=== PATIENT | female | born 1975 | race Hispanic/Latino ===

== ENCOUNTER 2022-01-25 15:28 | Emergency (ER) | payer BC ==
--- OUTSIDE RECORDS SUMMARY | 2022-01-25 15:31 | XMS REPORT | Continuity of Care Document ---
:1975 Author Organization [facility] t Address [address] [place] [address] Care Team Providers Name Role Phone FRANDY WHITING Primary Care Physician Unavailable Frandy Whiting Attending Clinician Unavailable JAVIER JUNIOR Attending Clinician Unavailable Leslie Leon Attending Clinician Doctor Unassigned, [place] Attending Clinician Unavailable Rob_Ashwini Attending Clinician Unavailable Rob_Ashwini Admitting Clinician Unavailable Payers Payer Name Policy Type Policy Number Effective Date Expiration Date S michelle TAFOYA BCBS BLUE [id number] 2021 [place]VANTAGE H[place] 00:00:00 [place] [id number] 2008 [place] (PP[place] 00:00:00 Problems Condition Condition Condition Status Onset Resolution Last Treating Co mments Source Name Details Category Date Date Treatment Clinician Date No known No known Disease Unive rs active active ity of problems problems [facility] Allergies, Adverse Reactions, Alerts Allergy Allergy Status Severity Reaction(s) Onset Inactive Treating Comm ents Source Name Type Date Date Clinician DOXYLAMI DRUG Active Other-Cmnt Univ ers N-PSE-DM 7-14 ity of -ACETAMI 00:00: [place] NOPHEN 00 Medical Branch SULFA Drug Active Hives Univers (SULFONA Class 7-14 ity of MIDE 00:00: [place] ANTIBIOT 00 Medical ICS) Branch Doxylami Propensi Active Other - See 2022-0 U nivers n-Pse-Dm ty to comments 12-21 ity of -Acetami adverse 00:00: [place] nophen reaction 00 Medical s Branch Sulfa Propensi Active Hives Univers (Sulfona ty to 12-21 ity of mide adverse 00:00: [place] Antibiot reaction 00 Medica l ics) s Branch NyQuil Adverse Active heart racing Com mon Reaction [facility] Sulfa Adverse Active shortness of Com mon Reaction breath [facility] Social History Social Habit Start Date Stop Date Quantity Comments Source Exposure to 2021-12-11 2021-12-21 Not sure [facility] SARS-CoV-2 00:00:00 13:24:00 [facility] (event) [place] Tobacco use and 2021-12-21 2021-12-21 Smokeless tobacco Un iversity of exposure 00:00:00 00:00:00 non-user [facility] Alcohol intake 2021-12-21 2021-12-21 Current drinker Unive rsity of 00:00:00 00:00:00 of alcohol [facility] (finding) [place] Sex Assigned At [birth year] Universit y of 00:00:00 00:00:00 [facility] Smoking Status Start Date Stop Date Source Never smoked tobacco [facility] Medications Ordered Filled Start Stop Current Ordering Indication Dosage Frequency Signature Comments Components Source Medication Medication Date Date Medication? Clinician (SIG) Name Name lansoprazol Yes 15mg Take 15 mg Univers e 7-14 by mouth ity of (PREVACID) 13:37: in the [place] 15 mg 34 morning Medical capsule and 15 mg Branch in the evening. hydrOXYzine 0 Yes 25mg Take 25 mg Univers 25 mg 7-14 by mouth ity of tablet 13:37: every 6 [place] [id number] (six) Medical hours. Branch lansoprazol 0 Yes 15mg Take 15 mg Univers e 7-14 by mouth ity of (PREVACID) 13:37: in the [place] 15 mg 34 morning Medical capsule and 15 mg Branch in the evening. hydrOXYzine 2021-0 Yes 25mg Take 25 mg Univers 25 mg 7-14 by mouth ity of tablet 13:37: every 6 [place] [address] (six) Medical hours. Branch Procedures Procedure Date / Time Performing Clinician Source Performed INSURANCE CORRESPONDENCE 2021-12-26 05:01:00 Doctor Unassigned, [facility] [place] [facility] Encounters Start End Encounter Admission Attending Care Care Encounter Source Date/Time Date/Time Type Type Clinicians Facility Department ID 2021-12-20 Outpatient Tricia, [facility] STL[facility] [id number] Common 08:23:00 Frandy [id number] [facility] 2021-11-16 Outpatient [place], STLMLC STLMLC [id number] Common 09:05:01 Frandy [id number] [facility] 2021-10-27 Outpatient [place], STLMLC STLMLC [id number] Common 10:40:05 Frandy [facility] 2021-10-04 Outpatient [place], STLMLC STLMLC [id number] Common 10:43:00 Frandy [facility] 2021-07-05 Outpatient [place], STLMLC STLMLC [id number] Common 13:51:12 Frandy [id number] [facility] 2021-07-05 Outpatient [place], STLMLC STLMLC [id number] Common 13:10:23 Frandy [id number] [facility] 2021-07-05 Outpatient [place], STLMLC STLMLC [id number] Common 11:36:03 Frandy [id number] [facility] 2021-07-05 Outpatient STLMLC STLMLC [id number] Common 11:26:02 [id number] [facility] 2022-01-16 2022-01-16 Outpatient R SANDI, [facility] [id number] Univers 10:00:00 10:00:00 JAVIER [id number] ity o f [facility] 2022-01-16 2022-01-16 Outpatient [facility] [id number] Univers 10:00:00 10:00:00 JAVIER hernandezy o f [facility] 2021-12-31 2021-12-31 Telephone GILBERT Carrero [id number] Univers 00:00:00 00:00:00 Leslie MORRIS [id number] i ty of [facility] [id number] Christopher as [id number] [facility] 008 Branch 2021-12-26 2021-12-26 Orders Doctor GILBERT [id number] Univers 00:00:00 00:00:00 Only Unassigned, ALEXANDRA [id number] ity of [facility] [id number] Christopher as [id number] [facility] 009 Branch 2021-12-22 2021-12-22 ambulatory STLMLC STLMLC [id number] Common 00:00:00 00:00:00 [facility] 2021-12-19 2021-12-19 ambulatory STLMLC STLMLC [id number] Common 00:00:00 00:00:00 [facility] 2021-11-20 2021-11-20 ambulatory STLMLC STLMLC [id number] Common 00:00:00 00:00:00 [facility] 2021-11-15 2021-11-15 ambulatory STLMLC STLMLC [id number] Common 00:00:00 00:00:00 [facility] 2021-11-14 2021-11-14 ambulatory STLMLC STLMLC [id number] Common 00:00:00 00:00:00 [facility] 2021-11-01 2021-11-01 ambulatory STLMLC STLMLC [id number] Common 00:00:00 00:00:00 [facility] 2021-10-31 2021-10-31 ambulatory STLMLC STLMLC [id number] Common 00:00:00 00:00:00 [facility] 2021-10-20 2021-10-20 ambulatory STLMLC STLMLC [id number] Common 00:00:00 00:00:00 [facility] 2021-10-05 2021-10-05 ambulatory STLMLC STLMLC [id number] Common 00:00:00 00:00:00 [facility] 2021-04-14 2021-04-14 ambulatory STLMLC STLMLC [id number] Common 00:00:00 00:00:00 [facility] 2021-02-02 2021-02-02 Outpatient STLMLC STLMLC [id number] Common 00:00:00 00:00:00 [facility] 2021-02-02 2021-02-02 Outpatient STLMLC STLMLC [id number] Common 00:00:00 00:00:00 [facility] 2021-01-09 2021-01-09 Outpatient STLMLC STLMLC [id number] Common 00:00:00 00:00:00 [facility] 2020-11-09 2020-11-09 Outpatient STLMLC STLMLC [id number] Common 00:00:00 00:00:00 [facility] 2020-10-19 2020-10-19 Outpatient STLMLC STLMLC [id number] Common 00:00:00 00:00:00 [facility] 2020-10-18 2020-10-18 Outpatient STLMLC STL[facility]C [id number] Common 00:00:00 00:00:00 [facility] 2020-10-05 2020-10-05 Outpatient STLMLC STL[facility]C [id number] Common 00:00:00 00:00:00 [facility] 2020-10-03 2020-10-03 Outpatient STLMLC STL[facility]C [id number] Common 00:00:00 00:00:00 [facility] 2020-01-26 2020-01-26 Outpatient Young_J MMG MMG [id number] [place] 10:25:00 10:25:00 [id number] 2020-01-06 2020-01-06 [facility] [id number] Common 13:00:00 13:00:00 [facility] 2019-11-19 2019-11-19 [facility] [id number] Common 09:00:00 09:00:00 [facility] Results This patient has no known results.
[2022-01-25 16:08] LABS: Absolute Lymphocytes (CBC) 2.4 K/uL (0.7-4.9); Hematocrit 38.2 % (36.0-45.0); Lymphocytes % 31.5 % (15.3-44.8); MPV 8.5 fL (7.6-11.3); RBC Red Blood Cell Count 4.25 M/uL (3.86-4.86)
[2022-01-25 17:13] LABS: Magnesium 2.3 mg/dL (1.8-2.4); Potassium 3.5 mmol/L (3.5-5.1); Thyroid Stimulating Hormone 2.25 uIU/mL (0.360-3.740); Troponin High Sensitivity 10.2 pg/mL (<58.9)
--- NOTE | 2022-01-25 17:18 | RAD REPORT ---
EXAM DESCRIPTION: RAD - Chest Single View - 01/25/2022 5:12 pm CLINICAL HISTORY: CHEST PAIN Chest pain. COMPARISON: No comparisons FINDINGS: Portable technique limits examination quality. The lungs are grossly clear. The heart is normal in size. No displaced fractures. IMPRESSION: No acute intrathoracic process suspected.
[2022-01-25] MEDS ORDERED: NA CHLORIDE 0.9% 1,000 ML ONE (17:56)
--- NOTE | 2022-01-25 18:21 | RAD REPORT ---
EXAM DESCRIPTION: - CP - 01/25/2022 6:14 pm CLINICAL HISTORY: Swelling Neck pain and swelling COMPARISON: No comparisons TECHNIQUE: Real-time sonographic evaluation of both carotid systems was performed. Doppler interroga tion was performed with waveform tracing bilaterally. FINDINGS: Normal high resistance waveforms are noted in both external carotid arteries. The common c arotid arteries and internal carotid arteries show normal low resistance waveforms. Minimal bilateral plaquing. Peak systolic and end diastolic velocity values and the ICA/CCA ratios ar e in the non-hemodynamically significant range. Antegrade flow seen in both vertebral arteries. IMPRESSION: Minimal bilateral plaquing. No evidence of a hemodynamically significant stenosis.
--- NOTE | 2022-01-25 18:25 | ER ---
Nurse's Notes [facility] Name: Sagrario Boyd Age: 46 yrs Sex: Female : 1975 Arrival Date: 01/25/2022 Time: 15:30 Bed 23 Private MD: Diagnosis: Palpitations Presentation: 01/25 15:41 Chief complaint: Patient states: she started feeling like her heart was racing and like ap3 it was "going to pound out of her chest". patient states she attempted to calm herself, but has been unable to do so. Patient also reports feeling like the left side of her neck is swollen. Coronavirus screen: At this time, the client does not indicate any symptoms associated with coronavirus-19. Ebola Screen: No symptoms or risks identified at this time. Initial Sepsis Screen: Does the patient meet any 2 criteria? HR > 90 bpm. Does the patient have a suspected source of infection? No. Patient's initial sepsis screen is negative. Risk Assessment: Do you want to hurt yourself or someone else? Patient reports no desire to harm self or others. Onset of symptoms was January 25, 2022. 15:41 Method Of Arrival: Ambulatory ap3 15:41 Acuity: JULIUS 2 ap3 Triage Assessment: 16:32 General: Appears in no apparent distress. comfortable, Behavior is cooperative, ld1 appropriate for age, anxious. Pain: Denies pain. EENT: No signs and/or symptoms were reported regarding the EENT system. Neuro: Level of Consciousness is awake, alert, obeys commands, Oriented to person, place, time, situation. Cardiovascular: Capillary refill < 3 seconds Patient's skin is warm and dry. Rhythm is sinus rhythm. Respiratory: Airway is patent Respiratory effort is even, unlabored. GI: Abdomen is flat, non-distended. : No signs and/or symptoms were reported regarding the genitourinary system. Derm: No signs and/or symptoms reported regarding the dermatologic system. Musculoskeletal: No signs and/or symptoms reported regarding the musculoskeletal system. 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 - Social history:: Smoking status: Patient denies any tobacco usage or history of. Patient/guardian denies using alcohol. Screenin:03 Abuse screen: Denies threats or abuse. Denies injuries from another. Nutritional eh3 screening: No deficits noted. Tuberculosis screening: No symptoms or risk factors identified. Fall Risk None identified. Assessment: 19:03 Reassessment: Patient states symptoms have improved. eh3 Vital Signs: 15:41 BP 153 / 117; Pulse 122; Resp 22; Temp 98.3; Pulse Ox 100% ; Weight 41.73 kg; Height 5 ap3 ft. 1 in. (154.94 cm); 15:45 BP 143 / 91; Pulse 108; Resp 18; Pulse Ox 98% on R/A; eh3 16:00 BP 133 / 98; Pulse 103; Resp 18; Pulse Ox 100% on R/A; eh3 16:30 BP 128 / 87; Pulse 91; Resp 18; Pulse Ox 99% on R/A; eh3 18:00 BP 138 / 89; Pulse 91; Resp 18; Pulse Ox 100% on R/A; eh3 19:00 BP 129 / 79; Pulse 88; Resp 18; Pulse Ox 100% on R/A; eh3 15:41 Body Mass Index 17.38 (41.73 kg, 154.94 cm) ap3 ED Course: 15:30 Patient arrived in ED. rg4 15:32 Marly[facility]man [facility]C [facility]. kb 15:32 Gurmeet Pace MD is Attending Physician. kb 15:43 Tomeka Suresh, ELINA is Primary Nurse. ld1 15:43 Triage completed. ap3 16:32 Arm band placed on right wrist. ld1 16:36 Basic Metabolic Panel Sent. eh3 16:36 Magnesium Sent. eh3 16:36 Troponin HS Sent. eh3 17:14 XRAY Chest (1 view) In Process Unspecified. EDMS 18:16 Carotid Artery Bilateral US In Process Unspecified. EDMS 18:37 Inserted saline lock: 20 gauge in right antecubital area, using aseptic technique. ld1 Blood collected. 19:03 Patient has correct armband on for positive identification. Bed in low position. Call 3 light in reach. Side rails up X2. 19:13 No provider procedures requiring assistance completed. IV discontinued, intact, eh3 bleeding controlled, No redness/swelling at site. Pressure dressing applied. Administered Medications: 18:18 Not Given (unavailablee): Ativan (LORazepam) 0.25 mg IVP once kb 18:37 Drug: NS 0.9% 1000 ml Route: IV; Rate: 1000 ml; Site: right antecubital; ld1 19:13 Drug: Ativan (LORazepam) 0.5 mg Route: PO; eh3 Medication: 19:14 VIS not applicable for this client. eh3 Outcome: 18:24 Discharge ordered by . kb 19:13 Discharged to home ambulatory. eh3 19:13 Condition: stable 19:13 Discharge instructions given to patient, Instructed on discharge instructions, follow up and referral plans. Demonstrated understanding of instructions, follow-up care. 19:14 Patient left the ED. 3 Signatures: Dispatcher [employer] EDMS Marlyn Gilman, IKE-Lili RAMIRES-Thu Soto rg4 Jody Modi, RN RN ap3 Tomeka Suresh, RN RN ld1 Janie Eldridge, RN RN eh3
--- NOTE | 2022-01-25 18:25 | EDPHYS ---
Physician Documentation [facility] Name: Sagrario Boyd Age: 46 yrs Sex: Female : 1975 Arrival Date: 01/25/2022 Time: 15:30 Bed 23 Private MD: ED Physician Gurmeet Pace HPI: 01/25 15:57 This 46 yrs old Female presents to ER via Ambulatory with complaints of kb Palpitations. 15:57 The patient presents with a history of heart racing. Context: The symptoms occur at kb rest, with anxiety. Onset: The symptoms/episode began/occurred 30 minute(s) ago. Duration: The patient or guardian reports a single episode, that is still ongoing. Modifying factors: The symptoms are aggravated by nothing. The symptoms are alleviated by nothing. Associated signs and symptoms: The patient has no apparent associated signs or symptoms. Severity of symptoms: At their worst the symptoms were moderate in the emergency department the symptoms are unchanged. The patient has not experienced similar symptoms in the past. The patient has not recently seen a physician. Pt reports her heart has been racing for about 30 minutes. States she gets this at times due to anxiety, but came in to make sure it wasn't something else. Pt reports discomfort to left side of throat for the last month. Pt is tearful in triage. 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 - Social history:: Smoking status: Patient denies any tobacco usage or history of. Patient/guardian denies using alcohol. ROS: 15:55 Constitutional: Negative for fever, chills, and weight loss. kb 15:55 ENT: Positive for discomfort to left throat. 15:55 Cardiovascular: Positive for palpitations, Negative for chest pain, edema, orthopnea, paroxysmal nocturnal dyspnea. 15:55 Psych: Positive for anxiety. 15:55 All other systems are negative. Exam: 15:56 Head/Face: Normocephalic, atraumatic. ENT: Moist Mucous membranes Respiratory: kb Respirations even and unlabored. No increased work of breathing. Talking in full sentences Abdomen/GI: Soft, non-tender. No distention Skin: Warm, dry with normal turgor. Normal color. MS/ Extremity: Pulses equal, no cyanosis. Neurovascular intact. Full, normal range of motion. Neuro: Awake and alert, GCS 15, oriented to person, place, time, and situation. Moves all extremities. Normal gait. 15:56 Constitutional: The patient appears alert, awake, anxious. 15:56 ENT: Posterior pharynx: is normal, no erythema, no exudate, no peritonsilar mass, no swelling. 15:56 Cardiovascular: Rate: tachycardic, actual rate is 122 bpm, Rhythm: regular, Pulses: no pulse deficits are appreciated, Heart sounds: normal. 16:08 ECG was reviewed by the Attending Physician. Vital Signs: 15:41 BP 153 / 117; Pulse 122; Resp 22; Temp 98.3; Pulse Ox 100% ; Weight 41.73 kg; Height 5 ap3 ft. 1 in. (154.94 cm); 15:45 BP 143 / 91; Pulse 108; Resp 18; Pulse Ox 98% on R/A; eh3 16:00 BP 133 / 98; Pulse 103; Resp 18; Pulse Ox 100% on R/A; eh3 16:30 BP 128 / 87; Pulse 91; Resp 18; Pulse Ox 99% on R/A; eh3 18:00 BP 138 / 89; Pulse 91; Resp 18; Pulse Ox 100% on R/A; eh3 19:00 BP 129 / 79; Pulse 88; Resp 18; Pulse Ox 100% on R/A; eh3 15:41 Body Mass Index 17.38 (41.73 kg, 154.94 cm) ap3 MDM: 15:40 Patient medically screened. kb 15:57 Data reviewed: vital signs, nurses notes. Data interpreted: Pulse oximetry: on room air kb is 100 %. Interpretation: normal. 18:23 Counseling: I had a detailed discussion with the patient and/or guardian regarding: the kb historical points, exam findings, and any diagnostic results supporting the discharge/admit diagnosis, lab results, radiology results, the need for outpatient follow up, a family practitioner, to return to the emergency department if symptoms worsen or persist or if there are any questions or concerns that arise at home. 18:24 ED course: US carotids done due to pt concern for blockage. . kb 01/25 15:41 Order name: Basic Metabolic Panel; Complete Time: 17:14 kb 01/25 15:41 Order name: CBC with Diff; Complete Time: 16:16 kb 01/25 15:41 Order name: D-Dimer; Complete Time: 16:22 kb 01/25 15:41 Order name: Magnesium; Complete Time: 17:14 kb 01/25 15:41 Order name: Troponin HS; Complete Time: 17:14 kb 01/25 15:41 Order name: TSH; Complete Time: 17:14 kb 01/25 15:41 Order name: XRAY Chest (1 view); Complete Time: 17:24 kb 01/25 15:41 Order name: EKG; Complete Time: 15:41 kb 01/25 15:41 Order name: Cardiac monitoring; Complete Time: 15:49 kb 01/25 15:41 Order name: EKG - Nurse/Tech; Complete Time: 16:05 kb 01/25 17:47 Order name: Carotid Artery Bilateral US; Complete Time: 18:23 kb 01/25 15:41 Order name: IV Saline Lock; Complete Time: 16:05 kb 01/25 15:41 Order name: Labs collected and sent; Complete Time: 16:06 kb 01/25 15:41 Order name: O2 Per Protocol; Complete Time: 16:05 kb 01/25 15:41 Order name: O2 Sat Monitoring; Complete Time: 16:05 kb 01/25 16:22 Order name: Vital Signs; Complete Time: 16:36 kb EC:08 Rate is 101 beats/min. Rhythm is regular. QRS [place] is Normal. IN interval is normal at kb 150 msec. QRS interval is normal at 82 msec. QT interval is normal at 479 msec. Administered Medications: 18:18 Not Given (unavailablee): Ativan (LORazepam) 0.25 mg IVP once kb 18:37 Drug: NS 0.9% 1000 ml Route: IV; Rate: 1000 ml; Site: right antecubital; ld1 19:13 Drug: Ativan (LORazepam) 0.5 mg Route: PO; eh3 Disposition Summary: 01/25/22 18:24 Discharge Ordered Location: Home kb Condition: Stable kb Diagnosis - Palpitations kb Followup: kb - With: Emergency Department - When: As needed - Reason: Worsening of condition Followup: kb - With: Private Physician - When: 2 - 3 days - Reason: Recheck today's complaints, Continuance of care, Re-evaluation by your physician Discharge Instructions: - Discharge Summary Sheet kb - Panic Attack, [id number] kb - Palpitations, [id number]-[id number] kb Forms: - Medication Reconciliation Form kb - Thank You Letter kb - Antibiotic Education kb - Prescription Opioid Use kb Signatures: Dispatcher [employer] EDMS Marlyn Gilman, STOCKROOM SUPERVISOR-C STOCKROOM SUPERVISOR-Jody Hall RN RN ap3 Tomeka Suresh, RN RN ld1 Janie Eldridge RN RN eh3
[2022-01-25] MEDS ORDERED: LORAZEPAM 0.5 MG TABLET ONE (19:17)
[2022-01-25 19:19] VITALS: TEMP 98.3
[2022-01-25 19:28] VITALS: O2SAT 100
[2022-01-25 19:30] VITALS: BP 129/79
--- NOTE | 2022-01-26 08:02 | EKG ---
Test Date: 2022-01-25 Test Time: 15:58:39 Press Tender Long Goods: NGUYEN MEASUREMENT RESULTS: Intervals: Rate: 101 OK: 150 QRSD: 82 QT: 370 QTc: 479 [place]: P: 80 OK: 150 QRS: 81 T: 55 INTERPRETIVE STATEMENTS: Sinus tachycardia Otherwise normal ECG No previous ECG available for comparison Electronically Signed On 01-26-22 08:01:30 CDT by Ruddy Lockhart
== END 2022-01-25 19:14 | disposition home or self-care (01) ==
LOC: ER 15:28
DX: R00.2 Palpitations (principal); Z88.2 Allergy status to sulfonamides; Z88.8 Allergy status to other drugs, medicaments and biological substances
CPT/HCPCS: 93005; 85025; 80048; 36415; 83735; 85379; 84443; 84484; 71045; 93880; 99284; J7030

== ENCOUNTER → 2022-06-27 | Day surgery (SDC) | payer BC ==
--- NOTE | 2022-06-27 15:41 | RAD REPORT ---
EXAM DESCRIPTION: US - Follow Up Breast Axilla Ltd - 06/27/2022 10:08 am CLINICAL HISTORY: R92.8 COMPARISON: Follow Up Breast Axilla Comp dated 05/30/2022 FINDINGS: The patient was referred for breast cyst aspiration. Real-time pre-procedure ultrasound was performed by attending radiologist for procedure planning. Dur ing this ultrasound, it was noted that the lesion of interest 10 o'clock position left breast has dim inished in size since 05/30/2022. Currently measures 4-5 mm, previously 9-10 mm. Because of this dimi nishment in size, high probability that this represents a benign cyst. At this time, the FNA procedur e was deferred. Patient requested follow-up breast ultrasound in 3 months for surveillance and reassu gina. IMPRESSION: Mild size decrease in the 9-10 o'clock lesion left breast, highly indicative of a benign cyst. For surveillance/ reassurance purposes, three-month follow-up left whole breast ultrasound is recommended. BI-RAD: 3, probably benign ResultCode: PB3
== END ==
LOC: DS 08:00
PROVIDERS: ATTEND Nurse Practitioner Family
DX: R92.8 Other abnormal and inconclusive findings on diagnostic imaging of breast (principal); Z53.8 Procedure and treatment not carried out for other reasons
CPT/HCPCS: 76642